=== PATIENT | female | born 1970 | race Caucasian/White ===

== ENCOUNTER 2019-11-05 09:33 | Day surgery (SDC) | payer BC ==
[~2019-11-05 09:33] MED LIST: Midazolam 1 MG/ML 2 ML SDV ONE; Propofol 200 MG/20 ML SDV ONE; fentaNYL 100 MCG/2 ML SDV ONE
[2019-11-05] MEDS ORDERED: Dextrose 5%-Lactated Ringers 1,000 ML IV SCH (10:45)
--- NOTE | 2019-11-08 13:06 | OR ---
DATE OF PROCEDURE: 11/05/2019 SURGEON: Kwesi Kramer MD PREOPERATIVE DIAGNOSIS: Indication for screening colonoscopy. POSTOPERATIVE DIAGNOSIS: Normal colonoscopic examination. OPERATIVE PROCEDURE: Flexible colonoscopy. ANESTHESIA: IV sedation. INDICATION FOR PROCEDURE: This is a 49-year-old female presenting for a screening colonoscopy. She has no family or personal history of colonic neoplasia. The plan is to proceed with a colonoscopy with biopsies and/or polypectomy as indicated. Potential risks including bleeding and perforation were discussed, and the patient wishes to proceed. DETAILS OF PROCEDURE: The patient was taken to the operating room placed in a left lateral decubitus position. IV sedation was administered, after which the initial digital rectal exam was performed and was unremarkable. Colonoscope was then passed into the rectum with retroflexion revealing uncomplicated hemorrhoidal columns. Scope was eventually passed to the level of the cecum. The prep was quite good with only small liquid stool present to that level. No abnormalities were noted. There were no diverticula. No areas of colitis, no polyps, or other signs of neoplasia. Scope was then withdrawn, the above findings were reconfirmed. The procedure was concluded. The patient was taken to the recovery room in satisfactory condition. Given the pretty normal exam without any family or personal history of colonic neoplasia, the next colonoscopy should be scheduled for roughly 10 years. Kwesi Kramer MD /[id number]
== END 2019-11-05 13:20 | disposition home or self-care (01) ==
LOC: JP.SDS 09:33
PROVIDERS: ATTEND Surgery
DX: Z12.11 Encounter for screening for malignant neoplasm of colon (principal); K64.9 Unspecified hemorrhoids
CPT/HCPCS: 45378; J2250; J2704; J3010; J7121

== ENCOUNTER 2020-09-24 10:39 | Emergency (ER) | payer BC ==
--- NOTE | 2020-09-24 11:25 | EDM.PDOC ---
ED HPI GENERAL MEDICAL PROBLEM - General Chief Complaint: Respiratory Problem Stated Complaint: TROUBLE BREATHING, COVID SYMPTOMS Time Seen by Provider: 09/24/20 11:25 Source of Information: Reports: Patient History Limitations: Reports: No Limitations - History of Present Illness INITIAL COMMENTS - FREE TEXT/NARRATIVE: pt was covid positive on September 15. She has not been improving like she should. She was sob and was experiencing a severe headache. The headaches havwe gotten alot worse in the last 2 days. Onset: Gradual Duration: Day(s):, Other (headache is worse in the last 2 days. 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: Neurological History: Reports: Headaches, Chronic Endocrine/Metabolic History: Reports: Obesity/BMI 30+ Hematologic History: Reports: Blood Transfusion(s) - Infectious Disease History Infectious Disease History: Reports: Chicken Pox - Past Surgical History GI Surgical History: Reports: Colonoscopy Female Surgical History: Reports: Endometrial Ablation Social & Family History - Tobacco Use Tobacco Use Status *Q: Never Tobacco User - Caffeine Use Caffeine Use: Reports: None - Alcohol Use Days Per Week of Alcohol Use: 2 Number of Drinks Per Day: 2 Total Drinks Per Week: 4 - Recreational Drug Use Recreational Drug Use: No ED ROS GENERAL - Review of Systems Review Of Systems: See Below Constitutional: Reports: Fever, Chills, Malaise, Weakness HEENT: Reports: No Symptoms Respiratory: Reports: Shortness of Breath, Cough Cardiovascular: Reports: No Symptoms Endocrine: Reports: No Symptoms GI/Abdominal: Reports: No Symptoms : Reports: No Symptoms Musculoskeletal: Reports: No Symptoms Skin: Reports: No Symptoms Neurological: Reports: Headache, Other ( very severe headache. ) ED EXAM, GENERAL - Physical Exam Exam: See Below Free Text/Narrative:: pt arrived sob and having a severe headache. She feels like the headache has been alot worse in the lasr 2 days. Exam Limited By: No Limitations General Appearance: Alert, Anxious, Moderate Distress, Other (pupils are equal and reactive. ) Ears: Normal TMs Nose: Normal Inspection Throat/Mouth: Normal Inspection Head: Atraumatic Neck: Normal Inspection Respiratory/Chest: Decreased Breath Sounds, Wheezing, Other ( o2 sats are on the lower side. ) Cardiovascular: Regular Rate, Rhythm GI/Abdominal: Soft, Non-Tender (Female) Exam: Deferred Rectal (Female) Exam: Deferred Back Exam: Normal Inspection Extremities: Normal Inspection Neurological: Alert, Oriented, Normal Cognition Psychiatric: Anxious Course - Vital Signs Last Recorded V/S: Last Vital Signs Temp 38.1 C 09/24/20 12:52 Pulse 80 09/24/20 12:00 Resp 20 09/24/20 11:02 BP 165/96 H 09/24/20 12:00 Pulse Ox 93 L 09/24/20 12:00 - Orders/Labs/Meds Orders: Active Orders 24 hr Category Date Time Status RT Post Treatment Assessment [RC] Click to Edit Care 09/24/20 11:44 Active Chest 1V Frontal [CR] Stat Exams 09/24/20 11:26 Taken Labs: Laboratory Tests 09/24/20 09/24/20 09/24/20 Range/Units 11:46 11:46 11:46 WBC 3.8 L (4.5-11.0) K/uL RBC 4.98 (3.30-5.50) M/uL Hgb 14.3 (12.0-15.0) g/dL Hct 42.3 (36.0-48.0) % MCV 85 (80-98) fL MCH 29 (27-31) pg MCHC 34 (32-36) % Plt Count 216 (150-400) K/uL Neut % (Auto) 85 H (36-66) % Lymph % (Auto) 12 L (24-44) % Camp % (Auto) 3 (2-6) % Eos % (Auto) 0 L (2-4) % Baso % (Auto) 1 (0-1) % D-Dimer, Quantitative (0.0-500.0) ng/mL Sodium 140 (140-148) mmol/L Potassium 3.9 (3.6-5.2) mmol/L Chloride 99 L (100-108) mmol/L Carbon Dioxide 25 (21-32) mmol/L Anion Gap 19.9 H (5.0-14.0) mmol/L BUN 10 (7-18) mg/dL Creatinine 0.8 (0.6-1.0) mg/dL Est Cr Clr Drug Dosing 77.01 mL/min Estimated GFR (MDRD) > 60 (>60) Glucose 135 H (74-106) mg/dL Calcium 8.8 (8.5-10.1) mg/dL Total Bilirubin 0.5 (0.2-1.0) mg/dL AST 33 (15-37) U/L ALT 59 (12-78) U/L Alkaline Phosphatase 116 (46-116) U/L C-Reactive Protein 6.39 H (0.0-0.3) mg/dL Total Protein 7.9 (6.4-8.2) g/dL Albumin 3.5 (3.4-5.0) g/dL Globulin 4.4 H (2.3-3.5) g/dL Albumin/Globulin Ratio 0.8 L (1.2-2.2) 09/24/20 Range/Units 11:46 WBC (4.5-11.0) K/uL RBC (3.30-5.50) M/uL Hgb (12.0-15.0) g/dL Hct (36.0-48.0) % MCV (80-98) fL MCH (27-31) pg MCHC (32-36) % Plt Count (150-400) K/uL Neut % (Auto) (36-66) % Lymph % (Auto) (24-44) % Camp % (Auto) (2-6) % Eos % (Auto) (2-4) % Baso % (Auto) (0-1) % D-Dimer, Quantitative 769.75 H (0.0-500.0) ng/mL Sodium (140-148) mmol/L Potassium (3.6-5.2) mmol/L Chloride (100-108) mmol/L Carbon Dioxide (21-32) mmol/L Anion Gap (5.0-14.0) mmol/L BUN (7-18) mg/dL Creatinine (0.6-1.0) mg/dL Est Cr Clr Drug Dosing mL/min Estimated GFR (MDRD) (>60) Glucose (74-106) mg/dL Calcium (8.5-10.1) mg/dL Total Bilirubin (0.2-1.0) mg/dL AST (15-37) U/L ALT (12-78) U/L Alkaline Phosphatase (46-116) U/L C-Reactive Protein (0.0-0.3) mg/dL Total Protein (6.4-8.2) g/dL Albumin (3.4-5.0) g/dL Globulin (2.3-3.5) g/dL Albumin/Globulin Ratio (1.2-2.2) Meds: Medications Discontinued Medications Generic Name Dose Route Start Last Admin Trade Name Freq PRN Reason Stop Dose Admin Acetaminophen 650 mg 09/24/20 11:44 09/24/20 12:49 Acetaminophen 325 Mg Tab PO 09/24/20 11:45 650 mg NOW ONE Administration Hydrocodone Bitart/Acetaminophen 1 tab 09/24/20 13:31 Acetaminophen/Hydrocodone 325-5 Mg Tab PO 09/24/20 13:32 ONETIME ONE Albuterol 2 gm 09/24/20 11:44 09/24/20 12:50 Albuterol 8 Gm Inhaler INH 09/24/20 11:45 2 puff ONETIME ONE Administration - Re-Assessments/Exams Free Text/Narrative Re-Assessment/Exam: 09/24/20 13:36 pt has slight infiltrates on the chest her wbc is low. Her ddimer is mildly elevated. She has o2 sats at about 91. She was given a inhaler treatment. 09/24/20 14:49 cat scan was normal-- of the head Departure - Departure Time of Disposition: 13:25 Disposition: Home, Self-Care 01 Condition: Fair Clinical Impression: COVID-19, Pneumonia - Discharge Information Instructions: COVID-19, COVID-19: Quarantine vs. Isolation - [facility], Prevent the Spread of COVID-19 if You Are Sick - [facility] Referrals: Lorna Bowen DO [Primary Care Provider] - Forms: ED Department Discharge Care Plan Goals: continue doxycline and predisone. add albuterol inhaler 2 puff qid, encourage deep breathing, rtc if pt becomes more sob. norco 5/325 q6h prn for headache. Sepsis Event Note (ED) - Evaluation Sepsis Screening Result: No Definite Risk - Focused Exam Vital Signs: Vital Signs Temp Pulse Resp BP Pulse Ox 09/24/20 12:52 38.1 C 09/24/20 12:00 80 165/96 H 93 L 09/24/20 11:02 38.2 C H 84 20 191/100 H 91 L - My Orders Last 24 Hours: My Active Orders 09/24/20 11:26 Chest 1V Frontal [CR] Stat 09/24/20 11:44 RT Post Treatment Assessment [RC] Click to Edit - Assessment/Plan Last 24 Hours: My Active Orders 09/24/20 11:26 Chest 1V Frontal [CR] Stat 09/24/20 11:44 RT Post Treatment Assessment [RC] Click to Edit
[2020-09-24] MEDS ORDERED: Acetaminophen 325 MG Tab PO ONE (11:44)
[2020-09-24] MEDS ORDERED: Albuterol 8 GM Inhaler INH ONE (11:44)
[2020-09-24] MEDS ORDERED: Acetaminophen/HYDROcodone 325-5 MG Tab PO ONE (13:31)
--- NOTE | 2020-09-24 14:46 | CRLCT ---
INDICATION: Severe headache with COVID. Headache for 2 days. TECHNIQUE: CT head without IV contrast. FINDINGS: Small amount of mucus, fluid, and mucosal thickening in the right sphenoid sinus. Minimal amounts of mucosal thickening and ethmoidal, left sphenoid, and right frontal sinuses. No intracranial hemorrhage, edema, or mass effect. Remainder negative. IMPRESSION: 1. No acute or significant intracranial disease. 2. Minimal inflammatory changes in the paranasal sinuses. Please note that all CT scans at this facility use dose modulation, iterative reconstruction, and/or weight-based dosing when appropriate to reduce radiation dose to as low as reasonably achievable. Dictated by Gildardo Alfonso MD @ 09/24/2020 2:43:[address] Gildardo Alfonso @ Sep 24 2020 2:43PM
--- NOTE | 2020-09-25 11:32 | CR ---
CHEST: Portable 09/24/2020 at 11:50 AM CLINICAL HISTORY:SOB COMPARISON:None FINDINGS: There is less than optimal inspiration. There is some patchy infiltrate-like density in the left lower lobe. There is also some streaky density in the right lower lobe which may be infiltrate or atelectasis. Heart size and pulmonary vascularity are normal Impression: Limited study due to less than full inspiration Patchy bibasal densities are suspect for pneumonic infiltrate. There is also some patchy atelectasis
== END 2020-09-24 15:17 | disposition home or self-care (01) ==
LOC: JP.ED 10:39
DX: U07.1 COVID-19 (principal); J12.82 Pneumonia due to coronavirus disease 2019; E66.9 Obesity, unspecified; Z68.32 Body mass index [BMI] 32.0-32.9, adult; Z79.899 Other long term (current) drug therapy
CPT/HCPCS: 36415; 70450; 71045; 71045-26; 80053; 85025; 85379; 86140; 94640; 99284; 99285-25; A9270-GY

== ENCOUNTER 2023-04-03 14:59 | Emergency (ER) | payer BC ==
[2023-04-03] MEDS ORDERED: Sodium Chloride 0.9% 10 ML Syringe FLUSH PRN (15:37)
[2023-04-03] MEDS ORDERED: Sodium Chloride 0.9% 1,000 ML IV ONE (15:39)
[2023-04-03 15:41] LABS: BASOPHILS ABSOLUTE AUTO 0.04 K/uL (0.00-0.10); BASOPHILS PERCENT AUTO 0.5 % (0.1-1.3); EOSINOPHILS ABSOLUTE AUTO 0.14 K/uL (0.00-0.40); EOSINOPHILS PERCENT AUTO 1.8 % (0.0-5.4); HEMATOCRIT 44.8 % (34.3-46.0); HEMOGLOBIN 15.3 g/dL (11.2-15.5); IMMATURE GRAN ABSOLUTE AUTO 0.03 K/uL (0.00-0.23); IMMATURE GRAN PERCENT AUTO 0.4 % (0.0-0.7); LYMPHOCYTES ABSOLUTE AUTO 2.61 K/uL (0.8-3.3); LYMPHOCYTES PERCENT AUTO 33.4 % (11.4-47.7); MEAN CORPUSCULAR HEMOGLOBIN 28.9 pg (31.6-35.5); MEAN CORPUSCULAR HGB CONC 34.2 g/dL (31.6-35.5); MEAN CORPUSCULAR VOLUME 84.7 fL (81.4-99.0); MONOCYTES ABSOLUTE AUTO 0.59 K/uL (0.20-0.90); MONOCYTES PERCENT AUTO 7.6 % (3.3-12.6); NEUTROPHILS PERCENT AUTO 56.3 % (40.0-78.1); PLATELET COUNT,PLT 304 K/uL (130-375); RED BLOOD CELL COUNT 5.29 M/uL (3.77-5.24); WHITE BLOOD CELL COUNT,WBC 7.8 K/uL (3.2-11.0)
[2023-04-03 15:47] LABS: A/G RATIO 1.2 (1.2-2.2); ALANINE AMINOTRANSFERASE,ALT 16 U/L (12-78); ALKALINE PHOSPHATASE 94 U/L (46-116); ANION GAP 11.3 mmol/L (5.0-14.0); ASPARTATE AMNIOTRANSFERASE,AST 16 U/L (15-37); BILIRUBIN TOTAL 0.6 mg/dL (0.2-1.0); BLOOD UREA NITROGEN,BUN 18 mg/dL (7-18); CALCIUM 8.5 mg/dL (8.5-10.1); CARBON DIOXIDE,CO2 27 mmol/L (21-32); CHLORIDE,CL 103 mmol/L (100-108); CREATININE 0.9 mg/dL (0.6-1.0); EST CRCL DRUG DOSING (CG) 66.12 mL/min; ESTIMATED GFR 76 mL/min (>60); GLUCOSE RANDOM 110 mg/dL (74-106); POTASSIUM,K 3.8 mmol/L (3.6-5.2); PROTEIN TOTAL,TP 7.3 g/dL (6.4-8.2); SODIUM,NA 141 mmol/L (140-148); TROPONIN I HIGH SENSITIVITY 12.6 pg/mL (<=60.3)
== END 2023-04-03 17:31 | disposition home or self-care (01) ==
LOC: JP.ED 14:59
DX: R00.0 Tachycardia, unspecified (principal); E66.9 Obesity, unspecified; Z68.32 Body mass index [BMI] 32.0-32.9, adult
CPT/HCPCS: 36415; 80053; 83735; 84484; 85025; 93005; 93010; 99283; 99285; J3490; J7030

== ENCOUNTER 2023-05-17 15:57 | Emergency (ER) | payer BC ==
[2023-05-17] MEDS ORDERED: Labetalol 20 MG/4 ML Syringe ONE (16:18)
[2023-05-17] MEDS ORDERED: Labetalol 20 MG/4 ML Syringe IVPUSH ONE (16:18)
[2023-05-17] MEDS ORDERED: Tenecteplase 50 MG Kit IV ONE (16:25)
[2023-05-17 16:53] LABS: BASOPHILS ABSOLUTE AUTO 0.03 K/uL (0.00-0.10); BASOPHILS PERCENT AUTO 0.5 % (0.1-1.3); EOSINOPHILS ABSOLUTE AUTO 0.09 K/uL (0.00-0.40); EOSINOPHILS PERCENT AUTO 1.4 % (0.0-5.4); HEMATOCRIT 38.2 % (34.3-46.0); HEMOGLOBIN 13.4 g/dL (11.2-15.5); IMMATURE GRAN ABSOLUTE AUTO 0.02 K/uL (0.00-0.23); IMMATURE GRAN PERCENT AUTO 0.3 % (0.0-0.7); LYMPHOCYTES ABSOLUTE AUTO 1.44 K/uL (0.8-3.3); LYMPHOCYTES PERCENT AUTO 22.7 % (11.4-47.7); MEAN CORPUSCULAR HEMOGLOBIN 29.3 pg (31.6-35.5); MEAN CORPUSCULAR HGB CONC 35.1 g/dL (31.6-35.5); MEAN CORPUSCULAR VOLUME 83.6 fL (81.4-99.0); MONOCYTES PERCENT AUTO 7.9 % (3.3-12.6); NEUTROPHILS ABSOLUTE AUTO 4.25 K/uL (1.0-7.6); NEUTROPHILS PERCENT AUTO 67.2 % (40.0-78.1); PLATELET COUNT,PLT 284 K/uL (130-375); RED BLOOD CELL COUNT 4.57 M/uL (3.77-5.24); WHITE BLOOD CELL COUNT,WBC 6.3 K/uL (3.2-11.0)
[2023-05-17 16:54] LABS: A/G RATIO 1.2 (1.2-2.2); ALANINE AMINOTRANSFERASE,ALT 29 U/L (12-78); ALBUMIN 3.7 g/dL (3.4-5.0); ALKALINE PHOSPHATASE 90 U/L (46-116); ANION GAP 14.4 mmol/L (5.0-14.0); ASPARTATE AMNIOTRANSFERASE,AST 19 U/L (15-37); BILIRUBIN TOTAL 0.8 mg/dL (0.2-1.0); BLOOD UREA NITROGEN,BUN 16 mg/dL (7-18); CALCIUM 8.3 mg/dL (8.5-10.1); CARBON DIOXIDE,CO2 24 mmol/L (21-32); CHLORIDE,CL 105 mmol/L (100-108); CREATININE 0.9 mg/dL (0.6-1.0); EST CRCL DRUG DOSING (CG) 66.12 mL/min; ESTIMATED GFR 76 mL/min (>60); GLUCOSE RANDOM 111 mg/dL (74-106); POTASSIUM,K 3.4 mmol/L (3.6-5.2); PROTEIN TOTAL,TP 6.9 g/dL (6.4-8.2); PROTHROMBIN TIME 10.6 sec (9.2-10.6); SODIUM,NA 140 mmol/L (140-148)
[2023-05-17] MEDS ORDERED: propofoL 100 ML IV SCH (17:00)
[2023-05-17] MEDS ORDERED: niCARdipine HCl 25 MG in Sodium Chloride 0.9% 240 ML IV SCH (17:00)
[2023-05-17] MEDS ORDERED: Succinylcholine 200 MG/10 ML MDV ONE (17:15)
[2023-05-17] MEDS ORDERED: Propofol 200 MG/20 ML SDV ONE (17:15)
== END 2023-05-17 18:46 | disposition other institution (70) ==
LOC: JP.ED 15:57
DX: I63.22 Cerebral infarction due to unspecified occlusion or stenosis of basilar artery (principal); E66.9 Obesity, unspecified
CPT/HCPCS: 36415; 51702; 70450; 80053; 85025; 85610; 93005; 96365; 96375; 99285; J0330; J2704; J3101; J3490; J7050